=== PATIENT | female | born 1960 | race Caucasian/White ===

== ENCOUNTER 2018-03-02 11:45 | Emergency (ER) | payer MEDICAID, OTHER ==
[~2018-03-02] VITALS: Ht 152.4 cm; Wt 97.5 kg
[~2018-03-02 11:45] MED LIST: ABI10 PO; CYCL10TA13 PO; FLUO20CA9 PO; IBUP-1842 PO; LEVO0.114 PO; METF1000 PO; SITA100T8 PO
[2018-03-02 11:47] VITALS: BP 143/84
--- NOTE | 2018-03-02 11:53 | NUR ---
PT AMBULATED TO ER BED 03
[2018-03-02] MEDS ORDERED: KETOROLAC 60 MG/2 ML VIAL IM ONE (11:55)
--- NOTE | 2018-03-02 12:05 | NUR ---
57/F BIB SELF. PT STATES THAT SHE FELL DENIED LOC, 10 DAYS AGO AND WENT TO SEE PRIMARY DOCTOR. XRAYS AND WAS GIVEN . SHE REPORTS THAT TWO DAYS AFTER HER FALL SHE PICKED UP HER GRANDSON AND THE PAIN WORSENED. PAIN 8/10 CONSTANT PAIN DESCRIBES IT PRESSURE. hx---DM and hypothyroidism. PATIENT IS SITTING UPRIGHT IN BED. SIDE RAILS UP X2. BED IN LOW POSITION.
--- NOTE | 2018-03-02 12:30 | NUR ---
pt spoke with pt Addendum: 03/02/18 at 1240 by AKI md spoke with pt
[2018-03-02 12:55] VITALS: BP 157/67
== END 2018-03-02 12:54 | disposition home or self-care (01) ==
LOC: MED 11:45
DX: S62.101A Fracture of unspecified carpal bone, right wrist, initial encounter for closed fracture (principal); E11.9 Type 2 diabetes mellitus without complications; E07.9 Disorder of thyroid, unspecified; Z88.1 Allergy status to other antibiotic agents; Z88.8 Allergy status to other drugs, medicaments and biological substances; Z90.49 Acquired absence of other specified parts of digestive tract; X58.XXXA Exposure to other specified factors, initial encounter; Y93.89 Activity, other specified; Y92.89 Other specified places as the place of occurrence of the external cause; Y99.8 Other external cause status
CPT/HCPCS: 29125; 96372; 99283; J1885

== ENCOUNTER 2020-11-04 17:01 | Emergency (ER) | payer BC, MEDICAID ==
[~2020-11-04] VITALS: Ht 154.9 cm; Wt 98.4 kg
[2020-11-04 17:24] VITALS: BP 137/97
--- NOTE | 2020-11-04 17:24 | NUR ---
pt ambulated to bed 04.
--- NOTE | 2020-11-04 17:25 | NUR ---
Patient placed in a gown and ambulated to restroom for urine sample.
--- NOTE | 2020-11-04 17:30 | NUR ---
60 Y/O FEMALE C/O GENERALIZED ABDOMINAL PAIN X1 MONTH. PT HAS BEEN SEEN BY PCP AND HAD STOOL CULTURES AND BLOOD AND NO INFECTION WAS FOUND. PCP SENT PT FOR US OF GALLBLADDER. ABD SOFT NON TENDER. LUNG SOUNDS CLEAR. HX HTN, DM, HLD, HYPOTHYROID ALLERGIES: MELOXICAM, FAMOTIDINE, DOXYCYCLINE
--- NOTE | 2020-11-04 18:15 | NUR ---
ERMD AT BEDSIDE EXAMINING PT
[2020-11-04] MEDS ORDERED: ALUMINUM HYD/MAG/SIMETHICONE 30 ML UDC ONE (18:30)
[2020-11-04] MEDS ORDERED: DICYCLOMINE HCL LIQUID 20 MG, ALUMINUM HYD/MAG/SIMETHICONE 30 ML, LIDOCAINE VISCOUS 2% ... PO ONE ×3 (18:30)
[2020-11-04] MEDS ORDERED: DICYCLOMINE HCL LIQUID 10 MG/5 ML UDC ONE (18:30)
[2020-11-04] MEDS ORDERED: KETOROLAC 30 MG/ML VIAL IM ONE (18:30)
--- NOTE | 2020-11-04 18:50 | NUR ---
PT TAKEN TO CT SCAN VIA W/C
--- NOTE | 2020-11-04 18:50 | NUR ---
LAB AT BEDSIDE
[2020-11-04 19:01] LABS: BASOPHILS # (AUTO) 0.1 K/uL (0.00-0.22); BASOPHILS % (AUTO) 0.6 % (0.0-2.0); EOSINOPHILS # (AUTO) 0.1 K/uL (0-0.4); HEMATOCRIT 38.5 % (36-48); HEMOGLOBIN 12.8 g/dL (12.0-16.0); LYMPHOCYTES # (AUTO) 3.1 K/uL (2.5-16.5); LYMPHOCYTES % (AUTO) 31.7 % (20.5-51.1); MEAN CORPUSCULAR HEMOGLOBIN 28 pg (27-31); MEAN CORPUSCULAR HGB CONC 33 g/dL (33-37); MONOCYTES # (AUTO) 0.8 K/uL (0.8-1.0); NEUTROPHILS # (AUTO) 5.8 K/uL (1.8-7.7); NEUTROPHILS % (AUTO) 58.7 % (42.2-75.2); PLATELET COUNT (AUTO) 467 K/uL (140-450); RED BLOOD CELL COUNT(AUTO) 4.53 MIL/uL (4.20-5.40); RED CELL DISTRIBUTION WIDTH 13.8 % (11.6-13.7); WHITE BLOOD COUNT (AUTO) 9.8 K/uL (4.8-10.8)
--- NOTE | 2020-11-04 19:05 | NUR ---
PT RETURNED FROM CT
[2020-11-04 19:20] LABS: ALBUMIN 3.7 g/dL (3.4-5.0); ANION GAP 12.7 (8-16); CARBON DIOXIDE 28.3 mmol/L (21-32); CREATININE 0.7 mg/dL (0.6-1.3); TOTAL BILIRUBIN 0.2 mg/dL (0.0-1.0)
[2020-11-04 19:51] LABS: APPEARANCE,URINE CLEAR (CLEAR); BILIRUBIN,URINE NEGATIVE (NEGATIVE); BLOOD, URINE NEGATIVE (NEGATIVE); COLOR,URINE YELLOW (YELLOW); LEUKOCYTE ESTERASE ,URINE NEGATIVE (NEGATIVE); NITRITE, URINE NEGATIVE (NEGATIVE); UGLUCOSE NEGATIVE (NEGATIVE)
[2020-11-04] MEDS ORDERED: MAG-27 PO (20:09)
[2020-11-04] MEDS ORDERED: BEN10 PO (20:09)
[2020-11-04] MEDS ORDERED: HYDROcodone/APAP 5/325 MG 1 TAB TAB PO ONE (20:20)
[2020-11-04 20:42] VITALS: BP 144/56
--- NOTE | 2020-11-04 20:42 | NUR ---
Patient discharged with v/s stable. Written and verbal after care instructions given and explained. Patient alert, oriented and verbalized understanding of instructions. Ambulatory with steady gait. All questions addressed prior to discharge. ID band removed. Patient advised to follow up with PMD. Rx of BENTYL AND MYLANTA MAXIMUM STRENGTH LIQ given. Patient educated on indication of medication including possible reaction and side effects. Opportunity to ask questions provided and answered.
== END 2020-11-04 20:42 | disposition home or self-care (01) ==
LOC: MED 17:01
DX: R10.84 Generalized abdominal pain (principal); R11.2 Nausea with vomiting, unspecified; R19.7 Diarrhea, unspecified; E11.9 Type 2 diabetes mellitus without complications; K21.9 Gastro-esophageal reflux disease without esophagitis; E07.9 Disorder of thyroid, unspecified; Z88.8 Allergy status to other drugs, medicaments and biological substances; Z88.1 Allergy status to other antibiotic agents
CPT/HCPCS: 36415; 74176; 80053; 81003; 81025; 83690; 85025; 96372; 99284; J1885